=== PATIENT | male | born 1945 | race Caucasian/White ===

== ENCOUNTER 2019-05-06 17:39 | Observation (INO) | payer MEDICARE, BC ==
[2019-05-06] MEDS ORDERED: NS 0.9% 1000 ML** 1,000 ML IV ONE ×3 (17:48→19:26)
--- NOTE | 2019-05-06 17:56 | ED ---
Complex/Multi-Sys Presentation - HPI Summary HPI Summary: 74-year-old male presents with weakness today. He states he's been working outside for the past 2 days. He states that he went outside at 10:00 am. He states that he was weeding. He states he stood up and felt very dizzy. He decided to lay down. He states he tried to get up and was unable to do so. He claims now that he did not pass out. States some weakness into his arms or legs. No difficulty speech. No difficulty swallowing. No difficulties with word finding. Denies any headache. The dizziness has resolved. He states weakness is better. Just feels very thirsty. no chest pain or SOB. no abdominal pain, nausea or vomiting. no cough. no recent illness. Has a sunburn noted to his face. He has no medical conditions. - History Of Current Complaint Chief Complaint: EDExposureHeatCold Time Seen by Provider: 05/06/19 17:47 - Allergies/Home Medications Allergies/Adverse Reactions: Allergies Allergy/AdvReac Type Severity Reaction Status Date / Time No Known Allergies Allergy Verified 05/06/19 20:53 Home Medications: Home Medications Advair Diskus 100-50* 05/06/19 [History] PMH/Surg Hx/FS Hx/Imm Hx Endocrine/Hematology History: Denies: Hx Anticoagulant Therapy Cardiovascular History: Reports: Hx Hypertension Denies: Hx Myocardial Infarction Infectious Disease History: No Infectious Disease History: Denies: Traveled Outside the [place] in Last 30 Days - Family History Known Family History: Positive: Non-Contributory - Social History Substance Use Type: Reports: None Review of Systems Negative: Fever Negative: Chest Pain Negative: Shortness Of Breath Neurological: Other - dizziness resolved Positive: Weakness All Other Systems Reviewed And Are Negative: Yes Physical Exam Triage Information Reviewed: Yes Vital Signs On Initial Exam: Initial Vitals Temp Pulse Resp BP Pulse Ox 97.8 F 120 20 115/82 90 05/06/19 17:42 05/06/19 17:42 05/06/19 17:42 05/06/19 17:42 05/06/19 17:42 Vital Signs Reviewed: Yes Appearance: Positive: Well-Appearing Skin: Positive: Warm, Dry Head/Face: Positive: Normal Head/Face Inspection Eyes: Positive: Normal, EOMI, TEX, Conjunctiva Clear ENT: Positive: Normal ENT inspection, Pharynx normal, TMs normal Respiratory/Lung Sounds: Positive: Clear to Auscultation, Breath Sounds Present Cardiovascular: Positive: Normal, RRR Abdomen Description: Positive: Nontender, Soft Bowel Sounds: Positive: Present Musculoskeletal: Positive: Strength/ROM Intact - all extremities Neurological: Positive: Sensory/Motor Intact, Alert, Oriented to Person Place, Time, CN Intact II-III, Finger to Nose, Facial Symmetry, Speech Normal Psychiatric: Positive: Normal Diagnostics - Vital Signs Vital Signs Temp Pulse Resp BP Pulse Ox 05/06/19 17:42 97.8 F 120 20 115/82 90 - Laboratory Result Diagrams: 05/06/19 18:22 05/06/19 20:37 Lab Statement: Any lab studies that have been ordered have been reviewed, and results considered in the medical decision making process. - EKG No standard instances Cardiac Rate: NL EKG Rhythm: Sinus Rhythm Summary of EKG Findings: sinus rhythm Re-Evaluation - Re-Evaluation First Eval Re-Evaluation Time: 20:05 Change: Improved Comment: feeling better after fluids, tolerate oral fluids Complex Multi-Symp Course/Dx Course Of Treatment: 74-year-old male presents with weakness today. He states he's been working outside for the past 2 days. He states that he went outside at 10:00 am. He states that he was weeding. He states he stood up and felt very dizzy. He decided to lay down. He states he tried to get up and was unable to do so. States some weakness into his arms or legs. No difficulty speech. No difficulty swallowing. No difficulties with word finding. Denies any headache. The dizziness has resolved. He states weakness is better. Just feels very thirsty. no chest pain or SOB. no abdominal pain, nausea or vomiting. no cough. no recent illness. Has a sunburn noted to his face. He has no medical conditions. On exam has a sunburn noted to right side of body. mucous membranes dry. No neuro deficit noted. temp normal. was initially tachycardia. wbc 15. lactic 3.1. CK 2,300. feeling better with fluids. vitals not orthostatic. able to ambulate to bathroom. discussed with dr gonzáles said to gt repeat bmp and ck. Cr improved. CK doubled. patient complain of left shoulder pain and limited ROM. shoulder xray normal. discussed case with dr haddad. - Diagnoses Differential Diagnoses/HQI/PQRI: CVA, Metabolic Abnormality, Other - heat exhuastoin Provider Diagnoses: Rhabdomyolysis, Dizziness, Shoulder pain, left Discharge - Sign-Out/Discharge Documenting (check all that apply): Patient Departure - Discharge Plan Condition: Stable Disposition: ADMITTED TO [facility] - Billing Disposition and Condition Condition: STABLE Disposition: Admitted to [facility]
[2019-05-06 18:45] LABS: ABS Basophils 0.1 10^3/ul (0-0.2); ABS Monocytes 1.3 10^3/ul (0-0.8); Eosinophil % 0.1 %; Hematocrit 47 % (42-52); Hemoglobin 15.7 g/dL (14.0-18.0); Lymphocyte % 6.8 %; Mean Corpuscular HGB Conc 34 g/dL (31-36); Mean Corpuscular Hemoglobin 39 pg (27-31); Mean Corpuscular Volume 116 fL (80-94); Mean Platelet Volume 9.5 fL (7.4-10.4); Platelet Count 199 10^3/uL (150-450); Red Blood Count 4.04 10^6 /uL (4.18-5.48); Red Cell Distribution Width 14 % (10-15); White Blood Count 15.4 10^3/uL (3.5-10.8)
[2019-05-06 18:48] LABS: Albumin 3.5 g/dL (3.2-5.2); Albumin/Globulin Ratio 1.1 (1-3); BUN/Creatinine Ratio 7.6 (8-20); C Reactive Protein 3.38 mg/L (<8.01); Calcium 8.5 mg/dL (8.6-10.3); Globulin 3.1 g/dL (2-4); Magnesium 1.8 mg/dL (1.9-2.7); Potassium 4.1 mmol/L (3.5-5.0); Total Bilirubin 0.7 mg/dL (0.2-1.0); Total Protein 6.6 g/dL (6.4-8.9)
[2019-05-06 18:49] LABS: Troponin I 0.02 ng/mL (<0.04)
[2019-05-06 19:21] LABS: TSH (Thyroid Stimulating Horm) 2.54 mcIU/mL (0.34-5.60)
[2019-05-06 20:44] LABS: Urine Appearance Clear; Urine Bacteria Absent (Absent); Urine Bilirubin Negative (Negative); Urine Blood 3+ (Negative); Urine Color Yellow; Urine Glucose Negative (Negative); Urine Ketones Negative (Negative); Urine Nitrite Negative (Negative); Urine Protein Negative (Negative); Urine Red Blood Cell 1+(3-5/hpf) (Absent); Urine Specific Gravity 1.008 (1.010-1.030); Urine Squamous Epithelial Cell Present (Absent); Urine Urobilinogen Negative (Negative); Urine White Blood Cell Trace(0-5/hpf) (Absent)
[2019-05-06 21:02] LABS: BUN/Creatinine Ratio 8.7 (8-20); Calcium 7.8 mg/dL (8.6-10.3); EGFR African American 75.2 (>60); EGFR Non-African American 62.2 (>60); Potassium 4.1 mmol/L (3.5-5.0)
[2019-05-06 21:04] LABS: Troponin I 0.03 ng/mL (<0.04)
[2019-05-06] MEDS ORDERED: Acetaminophen TAB* 325 MG PO PRN (23:09)
[2019-05-06] MEDS ORDERED: Lactated Ringers 1000 ML Bag* 1,000 ML IV SCH (23:45)
[2019-05-06] MEDS ORDERED: LORazepam TAB(*) 1 MG PO SCH (23:45)
[2019-05-06] MEDS ORDERED: Thiamine IV* 100 MG/ML 2 ML VIAL IM ONE (23:53)
[2019-05-07] MEDS ORDERED: Nicotine* 2MG (FRUIT FLAVOR) GUM PO PRN (00:02)
--- NOTE | 2019-05-07 02:09 | HP ---
CC: Dr. Justino Nielsen HISTORY AND PHYSICAL: DATE OF ADMISSION: 05/06/19. TIME OF EVALUATION: 10:50 p.m. PRIMARY CARE PROVIDER: Dr. Justino Nielsen. CHIEF COMPLAINT: "I don't know what happened." HISTORY OF PRESENT ILLNESS: Mr. Frederick is a 74-year-old male with past medical history of hypert ension, who presented to the emergency room after having an episode of dizziness while working in his garden. The patient states that he woke up around 6 in the morning, feeling well and around 10, he went to wo rk outside. He states that he was weeding, taking care of his tomatoes, watering some plants and aft er 10 to 15 minutes, he started to feel very weak and dizzy. He felt like he was going to pass out, so he sat down and eventually lied on the ground. He states that he was trying to get up, but he cou ld not because he was feeling so weak. His found him outside and called the ambulance to bring him to the emergency room. He is not sure if he lost consciousness or not and he does not know for h ow long he was working outside. As per ED report, the patient was lying on the ground in the sun for at least an hour. He denies chest pain, palpitations, shortness of breath, nausea, vomiting, diarrhea, or urinary compl aints. At the time of my evaluation, he states that he is feeling tired but the dizziness is resolved. PAST MEDICAL HISTORY: Hypertension. The patient states that he has stopped taking his pills. He st ates that the initial one caused cough and the second one caused dizziness and so for the past month, he has not been taking any medications. FAMILY HISTORY: His father had a heart attack in his 70s and his mother had a stroke in her 70s, she is still alive at 97. SOCIAL HISTORY: The patient is a smoker, half a pack a day since he was a teenager. He also states that he drinks 3 to 4 ounces of whisky every day. Surrogate decision maker is his , Heather gruber, phone number is [phone]. REVIEW OF SYSTEMS: A 14-point review of systems was performed, and all the pertinent negatives and p ositives are as per the HPI. PHYSICAL EXAMINATION GENERAL: The patient is a pleasant elderly gentleman, lying in the ED stretcher, in no acute distres s. VITAL SIGNS: Temperature 98.0, heart rate 63, respiratory rate is 16, oxygen saturation is 95% on ro om air, blood pressure is 139/83. HEENT: Pupils are equal. Dry mucous membranes. CHEST: Breath sounds present bilaterally with no added sounds. CVS: Normal S1, S2. Regular rate and rhythm. ABDOMEN: Soft. Bowel sounds are present. EXTREMITIES: No edema. NEURO: The patient is alert and oriented x3. Able to move all 4 extremities. SKIN: The patient has sunburn on the right side of his face and right arm. LABORATORY AND IMAGING DATA: The patient had a CBC that showed a WBC of 15.4, hemoglobin of 15.7, h ematocrit of 47 with a MVC of 116, MCH of 39, platelets of 199,000 with 84% neutrophils. Chemistry s howed a sodium of 142, potassium 4.1, chloride of 110, bicarb of 22, BUN of 11, creatinine of 1.4, gl ucose of 114, lactic acid of 3.1, calcium 8.5, magnesium 1.8. LFTs showed an AST of 64. His initial CPK was 23 and a repeat one was 4100. Urinalysis showed 3+ blood, 1+ rbcs, squamous epithelial cells and hyaline casts. EKG done 05/06/19 at 6:08 p.m. shows sinus rhythm at 87 beats per minute with no acute ischemic bradshaw es. There is no prior EKG to compare. CT of the brain without contrast showed no acute intracranial abnormality and a left shoulder x-ray is not yet officially read, but it shows signs of osteoarthros is, but I do not see any gross fracture, but we will follow the official report. ASSESSMENT AND PLAN: Mr. Frederick is a 74-year-old male with a past medical history of hypertensio n, who presented to the emergency room after an episode of dizziness and possible syncopal episode. 1. Dizziness. The patient has stopped taking his antihypertensives over the past month. On arrival to the emergency room, his blood pressure was normal, although it trended up a little and now it is back to normal again. It is unclear if he had a syncopal episode or not. He states that when the di zziness started, he was able to sit down and then lie down but he does not remember the details. He will be admitted to the telemetry floor and we will watch his heart rhythm. He will also have an echocardiogram. Although he does not remember all the details, he thinks he was working 10 to 15 minutes before he s tarted to feel sick. He states that he stooped over and when he got up, he felt dizzy. It does not sound he stayed outside for unknown amount of time and he does have a sunburn, so I think his dehydra tion at this point is from being on the ground for so long in the sun, but I do not think it is the c ause of his dizziness. He will receive IV hydration and we will continue to monitor. 2. Mild CPK elevation. We will continue IV hydration and continue to monitor. 3. Hypertension. The patient does not remember the name of his medications. We are going to contin ue to monitor his blood pressure and see if resuming medications will be necessary. 4. Alcohol use. The patient will be placed on a [place] protocol. 5. Tobacco abuse. The patient was educated about the importance of quitting and he will be started on nicotine supplementation. 6. DVT prophylaxis. The patient has a score of 2 on the DVT Prophylaxis Assessment Guide and he wi ll be started on subcutaneous heparin. 7. Code status is full. TIME SPENT: Approximately 55 minutes were spent with the patient interview, medical records review, physical examination to complete this admission; more than half of this time was spent [id number] w ith the patient and coordination of care. [id number]/[facility] #: [id number]
[2019-05-07 03:50] LABS: ABS Lymphocytes 1.5 10^3/ul (1.0-4.8); ABS Monocytes 1.1 10^3/ul (0-0.8); ABS Neutrophils 6.3 10^3/ul (1.5-7.7); Eosinophil % 0.1 %; Hematocrit 41 % (42-52); Lymphocyte % 17.1 %; Mean Corpuscular HGB Conc 35 g/dL (31-36); Mean Corpuscular Hemoglobin 40 pg (27-31); Mean Corpuscular Volume 115 fL (80-94); Mean Platelet Volume 9.5 fL (7.4-10.4); Platelet Count 170 10^3/uL (150-450); Red Blood Count 3.51 10^6 /uL (4.18-5.48); Red Cell Distribution Width 14 % (10-15)
[2019-05-07 03:57] LABS: BUN/Creatinine Ratio 10.9 (8-20); EGFR African American 87.4 (>60); EGFR Non-African American 72.2 (>60)
[2019-05-07 04:13] LABS: Troponin I 0.03 ng/mL (<0.04)
[2019-05-07] MEDS: Heparin VIAL(*) 5000 UNITS/ML VIAL (FIVE THOUSAND) SUBCUT SCH ×2 (05:28→13:37)
--- NOTE | 2019-05-07 08:54 | PN ---
Hospitalist Progress Note Date of Service: 05/07/19 HD # 1 on 05/07 74 M HTN, tob use, ETOH use d/o, who presented after being found down in garden , with sunburn, presyncopal sx on history, found to have elevated MCV, rhabdomyolysis, admitted for obs for furhter workup of syncope. #Syncope: Ddx likely multifacotrial, though possibly contirbuting HTn and dehydration, heat stroke, r/o arrythmia, intracranial pat -Neg Head CT -Tele on, Echo pending, EKG on admission without malignangt rhytym, trops flat #Rhabdo: + Blood in urine c/w myoglobinuria as both hemoglobin and myoglobin can be detected on the urine dipstick as "blood"; microscopic evaluation of the urine generally shows few red blood cells (RBC) -Agreesive hydaration with LR now at 100cc/hr after 2L bolus in ED -Watch kidney fxn, otherwise asymtpmatic #ETOH use d/o: Elevtaed MCV -On WAM, thiamine folate -check B12 tsh and folate to r/o other causes of macrocytosis #HTN: Restart therapy, per pt failed malodine and lisinopril /2 ot side effects , consider ARB #DVT PPX: SQH #Code: Full #Dispo: Possible d/c if WAM neg
[2019-05-07] MEDS ORDERED: Multivitamins/Minerals TAB PO SCH (09:00)
[2019-05-07] MEDS ORDERED: Folic Acid TAB* 1 MG PO SCH (09:00)
[2019-05-07] MEDS ORDERED: Thiamine TAB* 100 MG TAB PO SCH (09:00)
[2019-05-07] MEDS ORDERED: Perflutren Lipid Microsphere* 3 ML VIAL ONE (09:06)
--- NOTE | 2019-05-07 11:09 | PN ---
Subjective Date of Service: 05/07/19 Interval History: Noticed V tach 7s this morning. Patient recalled that he had chronic dizziness which was worse when he was walking down stairs, or standing up. He denied hearing difficulty, chest pain, palpitation related to it. He contributed his dizziness to amlodipine which was started 1 year ago for hypertension thus stopped. He is currently feeling better, no more dizziness at hospital. No tremors, no confusion. Discussed with patient regarding alcohol cessation, he ceased and went to AA meeting before, and stayed sober for 6 months. He claims he wants to stop drinking, but he doesn't want to talk about further plan, and he is not willing to go rehab for further detox. Offered psychiatry consult and social services manager, he refused. He wanted to get discharged with medication today. Objective Active Medications: Acetaminophen (Tylenol Tab*) 650 mg PO Q6H PRN PRN Reason: MILD PAIN or TEMP > 100.4 Folic Acid (Folvite Tab*) 1 mg PO DAILY [facility] Last Admin: 05/07/19 08:00 Dose: 1 mg Heparin Sodium (Porcine) (Heparin Vial(*)) 5,000 units SUBCUT Q8HR [facility] Last Admin: 05/07/19 05:28 Dose: Not Given Lactated Ringer's (Lactated Ringers 1000 Ml Bag*) 1,000 mls @ 100 mls/hr IV PER RATE [facility] Last Admin: 05/07/19 00:50 Dose: 100 mls/hr Lorazepam (Ativan Tab(*)) 0 - 6 mg PO .PER [facility] PROTOCOL [facility]; Protocol Multivitamins/Minerals (Theragran/Minerals Tab*) 1 tab PO DAILY [facility] Last Admin: 05/07/19 08:00 Dose: 1 tab Nicotine Polacrilex (Nicotine Gum*) 2 mg PO Q2H PRN PRN Reason: CRAVING Thiamine HCl (Vitamin B-1 Tab*) 100 mg PO DAILY [facility] Last Admin: 05/07/19 08:00 Dose: 100 mg Vital Signs - 8 hr 05/07/19 03:15 Temperature 97.8 F Pulse Rate 55 Respiratory 16 Rate Blood Pressure 147/71 (mmHg) O2 Sat by Pulse 94 Oximetry Oxygen Devices in Use Now: None Exam: Not in distress Heart normal S1S2 Lung clear Abdomen soft non tender No tremors bruises over left hip and left lateral leg seen. Result Diagrams: 05/07/19 03:22 05/07/19 03:22 Assess/Plan/Problems-Billing Assessment: 74 y/o white male with b/g HTN, alcohol use d/o, tabacco use d/o presented with sycope episode in garden, with sunburn. Admitted for further workup o a syncope. His syncope is likely mutifactoria, possibly contributing to HTn, dehydration, heat stroke. He also had rhabdomysis with no acute kidney injury. - Patient Problems (1) Syncope Current Visit: Yes Status: Acute Code(s): R55 - SYNCOPE AND COLLAPSE SNOMED Code(s): 893889929 Comment: - ddx include cardiogenic, neurogenic, dehydration, heat stroke, vasovagal - head CT, EKG neg, trop flat (2) Alcohol use disorder Current Visit: Yes Status: Acute Code(s): YWX5397 - SNOMED Code(s): 9906205 Comment: - advised for quit, pt reused - monitor CIWA score inpatient, and put on lorazepam prn (3) Rhabdomyolysis Current Visit: Yes Status: Acute Code(s): M62.82 - RHABDOMYOLYSIS SNOMED Code(s): 339251119 Comment: elevated CK, no BRODY, no globulinuria hydrate patient (4) Hypertension Current Visit: Yes Status: Acute Code(s): I10 - ESSENTIAL (PRIMARY) HYPERTENSION SNOMED Code(s): 53363776 Comment: failed amlodipine and lisinopril change to losartan this adm (5) Macrocytosis without anemia Current Visit: Yes Status: Acute Code(s): D75.89 - OTHER SPECIFIED DISEASES OF BLOOD AND BLOOD-FORMING ORGANS SNOMED Code(s): 574050790 Comment: elevated MCV without anemia, due to Etoh use put on folate, thiamine (6) Ventricular tachycardia (paroxysmal) Current Visit: Yes Status: Acute Code(s): I47.2 - VENTRICULAR TACHYCARDIA SNOMED Code(s): 50589877 Comment: possibly due to Mg deficiency related to chronic EtOH use replace Mg (7) DVT (deep venous thrombosis) Current Visit: Yes Status: Acute Code(s): I82.409 - ACUTE EMBOLISM AND THOMBOS UNSP DEEP VN UNSP LOWER EXTREMITY SNOMED Code(s): 783971804 Comment: subcutaneous heparin (8) Full code status Current Visit: Yes Status: Acute Code(s): Z78.9 - OTHER SPECIFIED HEALTH STATUS SNOMED Code(s): 083252389 Status and Disposition: Stable to home. Attestation Documenting Resident: Lynne Salinas Supervising Physician: Andressa Tian Attestation: This service has been performed in part by a resident under the direction of a teaching physician.I, Andressa Tian, performed the service, or was physically present during the critical, or weston portions of the service, furnished by the resident. I participated in the management of the patient.
[2019-05-07] MEDS ORDERED: Magnesium Sulfate 2 GM IV* 2 GM/50 ML BAG IVPB ONE (11:39)
--- NOTE | 2019-05-07 11:41 | ECHO ---
*[facility]* [place] [address] Fax #: [phone] Transthoracic Echocardiogram Patient: Andry Frederick : 1945 Study Date: 05/07/2019 Age: 74 Gender: M HR: 62 bpm Height: 65 in /165.1 cm BSA: 1.74 m^2 Weight: 147.7 lb /67.1 kg BMI: 24.6 kg/m^2 *Basket Operator: Alysa Shepherd [facility] *Referring Physician: * Laura FigueroaReading Physician: * Angel Sutton MD Indications: Syncope. History: Risk factors: Current tobacco use. Hypertension. Conclusions Summary: - Procedure narrative: Transthoracic echocardiography was performed. Image quality was suboptimal. Intravenous Definity , 3 mlswas administered. - Left ventricle: The cavity size is normal. Wall thickness is mildly increased. Systolic function is normal. The estimated ejection fraction is 55-60%. Wall motion is normal; there are no regional wall motion abnormalities. - Right ventricle: The cavity size is normal. Systolic function is normal. - Left atrium: The atrium is normal in size. - Pulmonary arteries: Systolic pressure can not be accurately estimated. - No significant valvular abnormalities noted. Recommendations: None prior for comparison at time of interpretation Study data: Transthoracic echocardiogram. Procedure: Transthoracic echocardiography was performed. Image quality was suboptimal. Intravenous Definity , 3 mlswas administered. Image enhancement administered by Vito [email or web address] Pressley. Complete 2D, spectral Doppler, and color flow Doppler. Location: Bedside. Patient status: Inpatient. Patient room number: 441 02. Rhythm: Normal sinus rhythm. Findings Left ventricle: The cavity size is normal. Wall thickness is mildly increased. Systolic function is normal. The estimated ejection fraction is 55-60%. Wall motion is normal; there are no regional wall motion abnormalities. There is no consistent Doppler evidence of clinically significant diastolic dysfunction. Right ventricle: The cavity size is normal. Systolic function is normal. Left atrium: The atrium is normal in size. Right atrium: The atrium is normal in size. Mitral valve: The leaflets are normal thickness. There is no evidence of stenosis. There is trace regurgitation. Aortic valve: Not well visualized. There is no evidence of thickening. There is no evidence of stenosis. There is no significant regurgitation. Tricuspid valve: The leaflets are normal thickness. There is no evidence of stenosis. There is no significant regurgitation. Pulmonic valve: Not well visualized. There is no evidence of stenosis. There is no significant regurgitation. Aorta: The aortic root appears normal. The aortic arch appears normal. Pericardium: There is no significant pericardial effusion. Pulmonary arteries: Not well visualized. Systolic pressure can not be accurately estimated. Systemic veins: Inferior vena cava: The vessel is normal in size. There is (>= 50%) respiratory change in the IVC dimension. Measurements Left ventricle Value Ref Aortic valve Value Ref JOANN, LAX 4.6 cm 4.2 - 5.8 Mary Jo diam, ED 2.2 cm ---- ESD, LAX 3.1 cm 2.5 - 4.0 Peak v, S 1.4 m/sec ---- FS, LAX 33 % 25 - 43 VTI, S 25.7 cm ---- PW, ED, LAX (H) 1.1 cm 0.6 - 1.0 Mean grad, S 3.0 mm Hg ---- EF 62 % 52 - 72 Peak grad, S 8.0 mm Hg ---- E', lat mary jo, TDI (L) 6.7 cm/sec >=10.0 E/e', lat mary jo, 9 Mitral valve Value Ref TDI Peak E 0.61 m/sec ---- E', med mary jo, TDI 9.0 cm/sec >=7.0 Peak A 0.68 m/sec ---- E/e', med mary jo, 7 Decel time 243 ms ---- TDI Peak E/A ratio 0.9 ---- E', avg, TDI 7.9 cm/sec E/e', avg, TDI 8 <=14 Pulmonic valve Value Ref Peak v, S 0.81 m/sec ---- LVOT Value Ref Peak grad, S 3.0 mm Hg ---- Peak thais, S 1.07 m/sec Mean grad, S 2 mm Hg Aortic root Value Ref Root diam 3.0 cm <3.9 Ventricular septum Value Ref IVS, ED 1.0 cm 0.6 - 1.0 Ascending aorta Value Ref AAo AP diam, S 3.4 cm ---- Right ventricle Value Ref JOANN, LAX 3.2 cm Aortic arch Value Ref JOANN minor ax, 3.0 cm 1.9 - 3.5 Arch diam 2.6 cm ---- A4C mid Decending aorta Value Ref Left atrium Value Ref Eb peak thais 0.58 m/sec ---- AP dim, ES 3.50 cm 3.00 - 4.00 Inferior vena cava Value Ref ML dim, A4C 4.1 cm Diam 1.3 cm ---- SI dim, A4C 5.0 cm Vol/bsa, ES, 1-p 23 ml/m^2 12 - 37 A4C Right atrium Value Ref SI dim, ES 5.0 cm 3.4 - 5.3 ML dim, ES, A4C 4.1 cm 2.6 - 4.4 Legend: (L) and (H) britton values outside specified reference range. Prepared and electronically signed by Angel Sutton MD 05/07/2019 11:40
[2019-05-07] MEDS ORDERED: Losartan TAB* 25 MG PO SCH (12:00)
[2019-05-07] MEDS ORDERED: Naltrexone TAB* 50 MG TAB PO SCH (12:00)
[2019-05-07 15:23] LABS: Folate 2.43 ng/mL (>3.99)
--- NOTE | 2019-05-07 15:27 | DS ---
CC: Dr. Justino Nielsen DISCHARGE SUMMARY: DATE OF ADMISSION: 05/06/19 DATE OF DISCHARGE: 05/07/19 PRIMARY CARE PROVIDER: Dr. Justino Nielsen. DISPOSITION AT THE TIME OF DISCHARGE: Stable to home. PRIMARY DIAGNOSES: 1. Vasovagal syncope. 2. Alcohol use disorder. 3. Rhabdomyolysis. SECONDARY DIAGNOSES: 1. Tobacco use. 2. Hypertension. 3. Alcohol dependence, complicated by withdrawals in the past. MEDICATIONS AT THE TIME OF DISCHARGE: 1. Folic acid 1 mg p.o. daily. 2. Losartan 25 mg p.o. daily. 3. Multivitamin 1 tab p.o. daily. 4. Naltrexone 50 mg p.o. daily p.r.n. for cravings. 5. Magnesium oxide 400 mg p.o. b.i.d. Medication changes on this admission were the addition of all medications as the patient was not taki ng any medications on admission. HISTORY OF PRESENT ILLNESS AND HOSPITAL COURSE: A 74-year-old male with the above past medical histo ry who presented to the emergency room after being found down by his in the garden in the [facility] [place], unclear how long he had been there. In the emergency room, the patient's vital signs were st able, mild hypertension. His orthostatic vitals were positive and he had a notable sunburn on his fac e. The patient is a vague historian, although he does report drinking 4 whiskey drinks at 9 a.m. and then going out into the garden to do some work. He reports it was very hot, he had not been drinkin g a lot of water and he describes a clear prodromal syndrome of feeling dizzy and then deciding to li e down. He is unsure if he truly lost consciousness and he is unsure if he struck his head, although he has no head pain. In the emergency room, workup included a shoulder x-ray which showed no acute fracture, a brain CT which showed no acute intracranial pathology, and an EKG which showed normal sin us rhythm with no acute signs of ischemia. Labs were done, which show significant macrocytosis to 11 5, but otherwise unremarkable; creatinine initially elevated at 1.44 as well as a total creatine andreina se elevated at 2316, magnesium low, lactic acid mildly elevated at 3.1. Secondary to lab abnormaliti es as well as syncopal workup, the hospitalist team was asked to admit the patient on observation sta tus and hospital course by problem is as follows: 1. Syncope. Naturally differential diagnosis for syncope is cardiogenic versus neurologic. The pat ient has clear prodrome on recollection and also has predisposing risk factor of alcohol use. He was orthostatic on admission and EKG did not show recent cardiac event. Brain CT does not show any acut e intracranial pathology. Neuro exam was unremarkable. The patient was monitored on telemetry witho ut any malignant arrhythmias. He does have low magnesium and it is possible that nonsustained V-tach contributed to this, although there was no evidence of this in this hospitalization. An echocardiog minal was done, which showed no regional wall motion abnormalities nor were there any valvular patholog ies to attribute to this dizziness. It is presumed that it is secondary to the combination of possib le heat stroke as well as vasovagal syncope in the setting of daily alcohol use and poor hydration st atus. The patient was given 2 L of lactated Ringer's in the emergency room and then was placed on 10 0 cc per hour and had significant improvement in his dizziness and orthostatics that were negative pr ior to discharge. He does have mild hypertension at baseline and the patient reported he had stopped taking all of his medications. He was started on low-dose losartan as he reports he had side effect s to amlodipine and lisinopril in the past. He tolerated first dose of losartan well in the hospital and was able to be discharged on such. 2. Hypertension. See above. The patient has failed amlodipine and lisinopril according to him, and trial of losartan 25 mg was started and can be followed up on status post discharge. 3. Alcohol use disorder. The patient has had withdrawals in the past. He says last time that he ma intained sobriety was 15 years ago where he maintained sobriety for 7 months after a DUI. He express es no interest whatsoever in stopping drinking, although many harm reduction factors were offered to him including groups, rehabilitation, medications, treatment for depression, and also even offered ke eping in the hospital to help him withdraw from alcohol, which he reports usually will not start unti l hospital day 3. The patient reports that he feels content to drink and sees no reason to stop, alt roberto carlos he would be willing to try medications to help with cravings if there was, in fact, the day he wanted to stop. Again, information on alcohol use disorder and treating underlying depression was giv en, although the patient declined resources or meeting with Social Work at this time. He had no sign s or symptoms of withdrawal while in the hospital and was placed on WAM protocol, though continually scored below protocol thresholds. He was discharged to home on 05/07/19 with recommendation to retur n to the hospital if he did, in fact, start going into withdrawal. 4. Rhabdomyolysis. The patient had total creatine kinase elevated on admission with mild creatinine elevation that after fluid rehydration returned to normal. CK is still elevated, though the patient is drinking and urinating normally. He has no joint pains, able to ambulate freely. Likely, this w as secondary to trauma from being found down. 5. Macrocytosis. This was most likely secondary to ongoing alcohol use. The patient was started on folate. B12 and TSH were checked and TSH was normal. B12 is pending. 6. DVT prophylaxis: The patient was placed on subcu heparin. On the day of discharge, the patient is tolerating diet and voiding freely. Orthostatics are negative . He is eager to return to home. Again, repeated counseling on unhealthy relationship with alcohol and clear alcohol use disorder with offer to keep the patient in the hospital for detoxification as w ell as pursuing inpatient alcohol use disorder treatment was given to the patient, which he adamantly declined and has capacity to do so. PHYSICAL EXAMINATION: On the day of discharge reveals an elderly man, in no acute distress without t remors. Regular rate and rhythm with no murmurs, rubs, or gallops. Clear to auscultation of lungs b ilaterally. Belly is soft, nontender, and nondistended. He is ambulating and voiding freely and linda erating diet with no further complaints of dizziness. LABS AND STUDIES DONE DURING THIS HOSPITALIZATION: On 05/06/19, CT head showed no acute intracranial pathology. Shoulder x-ray done on 05/05/19 shows no acute fracture. EKG showed normal sinus rhythm with no acute signs of ischemia. Echocardiogram on 05/07/19 showed ejection fraction of 50% to 55% with no regional wall motion abnorm alities and no valvular pathology. CONSULTATIONS DURING THIS HOSPITALIZATION: None. ITEMS TO FOLLOW UP ON STATUS POST DISCHARGE: 1. Hypertension. The patient was started on low-dose losartan. 2. Alcohol use disorder. The patient declined any assistance in discontinuing alcohol use. He did offer to try p.r.n. naltrexone after discussion of medications was brought up, though we counseled th at the use of medication-assisted therapy in alcohol use disorder without concurrent chemical depende ncy counseling is likely less successful. Suggest counseling and follow up with primary care to the best of his ability. Trial naltrexone 50 mg p.o. daily p.r.n. for cravings that the patient is vito ble to. 3. Macrocytosis. Started on folic acid and thiamine for precautions. 4. Syncope. There was no clear structural etiology for this patient's syncope and likely is presume d to be vasovagal in the setting of heat and early in the day alcohol use. If there are further epis odes, would recommend cardiac stress test. Plan of care was reviewed with the patient and his family, who ultimately agree and are stable to be discharged to home. Counseled to return to the hospital if any new signs or symptoms of chest pain, shortness of breath, or life-threatening symptoms. Otherwise, follow up with primary care. TIME SPENT: Thirty-five minutes were spent on the planning of this discharge, with over half of that spent directly at the bedside of the patient providing direct patient care. If there are any questions about the care provided to this patient, please do not hesitate to reach o ut to the hospitalist team directly. [id number]/[facility] #: [id number]
[2019-05-07 16:28] VITALS: BP 140/63
== END 2019-05-07 16:25 | disposition home or self-care (01) ==
LOC: ED 17:39 → MEDTELE 22:50
PROVIDERS: ADMIT Internal Medicine; ATTEND Internal Medicine
DX: R55 Syncope and collapse (principal); F10.20 Alcohol dependence, uncomplicated; M62.82 Rhabdomyolysis; I10 Essential (primary) hypertension; R94.4 Abnormal results of kidney function studies; R53.1 Weakness; R42 Dizziness and giddiness; I44.4 Left anterior fascicular block; F17.210 Nicotine dependence, cigarettes, uncomplicated; Z79.899 Other long term (current) drug therapy; D75.89 Other specified diseases of blood and blood-forming organs; I47.2 Ventricular tachycardia
CPT/HCPCS: 36415; 70450; 80048; 80053; 81003; 81015; 82550; 82746; 83605; 83735; 83880; 84443; 84484; 85025; 86140; 87086; 93005; 93306; 96361; 96365; 96372; 99285; 99406; A9270-GY; C8929; G0378; J1644; J3411; J3475

== ENCOUNTER 2023-12-27 06:42 | Observation (INO) ==
[2023-12-27] MEDS ORDERED: Scopolamine 1 mg/72hr PATCH ONE (07:54)
[2023-12-27] MEDS ORDERED: Lidocaine 2% PF 5 ML VIAL ONE (08:07)
[2023-12-27] MEDS ORDERED: Propofol 10 MG/ML 20 ML BTL ONE (08:07)
[2023-12-27] MEDS ORDERED: Midazolam 2 mg/2 ml VIAL 1 mg/ml 2 ml VIAL (2 mg) ONE (08:11)
[2023-12-27] MEDS ORDERED: fentaNYL 100 mcg/2 ml 50 MCG/ML VIAL ONE ×2 (08:11→09:57)
[2023-12-27 08:27] LABS: Rapid COVID-19 Molecular Undetected (Undetected)
[2023-12-27] MEDS ORDERED: Glycopyrrolate IV 0.2 MG/ML 1 ML VIAL ONE ×2 (08:36→12:44)
[2023-12-27] MEDS: Scopolamine 1 mg/72hr PATCH TRANSDERM ONE (08:44)
[2023-12-27] MEDS ORDERED: Naloxone 0.4 mg VIAL 0.4 mg/ml 1 ml VIAL IV PRN ×2 (08:47)
[2023-12-27] MEDS ORDERED: fentaNYL 100 mcg/2 ml 50 MCG/ML VIAL IV PRN (08:47)
[2023-12-27] MEDS ORDERED: Metoclopramide 5 MG/ML VIAL (10 mg) IV PRN (08:47)
[2023-12-27] MEDS ORDERED: Ondansetron 4 mg VIAL 2 MG/ML 2 ml VIAL IV PRN ×2 (08:47→09:12)
[2023-12-27] MEDS: Buffered Lidocaine 1% SYRIN 1 ml INTRADERM ONE (09:05)
[2023-12-27] MEDS ORDERED: Mometasone/Formoter 200/5 MDI INH PRN (09:11)
[2023-12-27] MEDS ORDERED: Sterile Water for Inj 10 ML ONE (09:50)
[2023-12-27] MEDS ORDERED: Ondansetron 4 mg VIAL 2 MG/ML 2 ml VIAL ONE ×2 (09:52→13:05)
[2023-12-27] MEDS ORDERED: Dexamethasone IV 4 MG/ML VIAL 1 ml VIAL ONE ×2 (09:52→13:05)
[2023-12-27] MEDS ORDERED: KETAMINE HCL 10 MG/ML 20 ml VIAL (200 MG) ONE (12:35)
[2023-12-27] MEDS: Gentamicin ADULT 275 MG in NS 0.9% 100 ml BAG 100 ML IVPB ONE (13:18)
[2023-12-27] MEDS: Ampicillin ADVAN 2 GM in NS 0.9% 100 ML 100 ML IVPB ONE (13:18)
[2023-12-27] MEDS: NS 0.9% 1000 ml BAG 1,000 ML IV SCH (13:32)
[2023-12-27] MEDS: Neomycin/Polym/Bacit TOP OINT 15 GM TOPICAL SCH (14:18)
[2023-12-27] MEDS: Lactated Ringers 1000 ml BAG 1,000 ML IV SCH (14:18)
[2023-12-27] MEDS: Magnesium Hydroxide LIQ 30 ML UDC PO SCH (21:14)
[2023-12-28 05:25] VITALS: BP 113/56
== END 2023-12-28 10:40 | disposition home or self-care (01) ==
LOC: OR 06:42 → SSU 06:42
PROVIDERS: ADMIT Urology; ATTEND Urology

== ENCOUNTER 2024-01-20 06:51 | Observation (INO) ==
[2024-01-20] MEDS: Ondansetron 4 mg VIAL 2 MG/ML 2 ml VIAL IV ONE ×2 (09:40→14:27)
[2024-01-20] MEDS: Lactated Ringers 1000 ml BAG 1,000 ML IV ONE (09:52)
[2024-01-20 10:01] LABS: Hematocrit 45.8 % (38-53); Hemoglobin 14.9 g/dL (13.2-16.3); Mean Corpuscular Hemoglobin 29.6 pg (27-33); Mean Corpuscular Hgb Conc 32.6 g/dL (31-36); Mean Platelet Volume 10.8 fL (7.5-11.2); Platelet Count 293 10^3/uL (150-450); Red Blood Count 5.03 10^6/uL (4.06-5.63); Red Cell Distribution Width 13.7 % (12-17); White Blood Count 10.6 10^3/uL (3.6-10.2)
[2024-01-20 10:13] LABS: Urine Appearance Turbid; Urine Bacteria 1+ /HPF (Absent); Urine Bilirubin 1+ (Negative); Urine Blood Negative (Negative); Urine Color Dark-Yellow; Urine Glucose Negative (Negative); Urine Ketones 1+ (Negative); Urine Nitrite Negative (Negative); Urine Protein 1+ (>=30 mg/dL) (Negative); Urine Red Blood Cell 2+(6-10/hpf) /HPF (0-Trace); Urine Squamous Epithelial Cell Present /HPF (Absent); Urine Urobilinogen 2+ (Negative); Urine White Blood Cell 3+(>20/hpf) /HPF (0-Trace); Urine pH 5.5 (5.0-8.0)
[2024-01-20 10:18] LABS: Albumin 3.2 g/dL (3.2-5.2); Albumin/Globulin Ratio 1.1 (1-3); C Reactive Protein 96.25 mg/L (<8.01); Creatinine, Serum 1.08 mg/dL (0.67-1.17); Globulin 2.8 g/dL (2-4); Potassium 4.1 mmol/L (3.5-5.0); Total Bilirubin 0.5 mg/dL (0.2-1.0); eGFR CKD-EPI 70.2 (>60)
[2024-01-20 10:34] LABS: ABS Lymphocytes 2.7 10^3/uL (1.0-4.8); ABS Monocytes 1.8 10^3/uL (0.0-1.1); ABS Neutrophils 6.1 10^3/uL (1.5-7.6); ABS Nucleated RBC 0.01 10^3/ul; Eosinophil % 0.1 %; Lymphocyte % 25.3 %; Nucleated Red Blood Cells % 0.1 %/100WBC (0.0-0.8)
[2024-01-20] MEDS: Iohexol 300 (CONTRAST) 10 ML SDV IV ONE (11:23)
[2024-01-20 11:40] LABS: High Sensitivity Troponin 1 Hr 8 pg/mL (<20)
[2024-01-20] MEDS: Piperacillin/Tazobac 3.375 BAG 3.375 GM/100 ML BAG IV ONE (14:50)
[2024-01-20] MEDS ORDERED: Mometasone/Formoter 200/5 MDI INH PRN (16:17)
[2024-01-20] MEDS ORDERED: Zosyn per Pharmacy NOTE FOLLOW UP SCH (17:00)
[2024-01-20] MEDS ORDERED: ZOSYN 3.375 GM Q8H per EXTENDED INFUSION IV SCH (18:30)
[2024-01-20] MEDS: ZOSYN 3.375 GM Q8H per EXTENDED INFUSION IV SCH (18:56)
[2024-01-20] MEDS: Enoxaparin 40 MG/0.4 ML SYR SUBCUT SCH (20:42)
[2024-01-21 06:14] LABS: Hemoglobin 13.2 g/dL (13.2-16.3); Mean Corpuscular Volume 91.1 fL (80-97); Mean Platelet Volume 10.7 fL (7.5-11.2); Platelet Count 243 10^3/uL (150-450); Red Cell Distribution Width 13.3 % (12-17)
[2024-01-21 06:21] LABS: ABS Eosinophils 0.1 10^3/uL (0.0-0.5); ABS Lymphocytes 2.5 10^3/uL (1.0-4.8); ABS Monocytes 1.6 10^3/uL (0.0-1.1); ABS Neutrophils 4.8 10^3/uL (1.5-7.6); ABS Nucleated RBC 0.01 10^3/ul; Eosinophil % 0.7 %; Lymphocyte % 27.8 %; Nucleated Red Blood Cells % 0.1 %/100WBC (0.0-0.8)
[2024-01-21 06:25] LABS: Calcium 7.7 mg/dL (8.6-10.3); Creatinine, Serum 1.02 mg/dL (0.67-1.17); Magnesium 1.9 mg/dL (1.9-2.7); Potassium 3.7 mmol/L (3.5-5.0); eGFR CKD-EPI 75.2 (>60)
[2024-01-21] MEDS: Pantoprazole VIAL 40 MG VIAL IV SCH (09:25)
[2024-01-21] MEDS ORDERED: Midazolam 10 mg/10 ml VIAL 1 mg/ml 10 ml VIAL (10 mg) ONE (11:39)
[2024-01-21] MEDS ORDERED: fentaNYL 100 mcg/2 ml 50 MCG/ML VIAL ONE (11:39)
[2024-01-21] MEDS: Ondansetron 4 mg VIAL 2 MG/ML 2 ml VIAL IV PRN (12:35)
[2024-01-21] MEDS ORDERED: Ondansetron 4 mg VIAL 2 MG/ML 2 ml VIAL ONE (12:36)
[2024-01-21] MEDS: ZOSYN 3.375 GM Q8H per EXTENDED INFUSION IV SCH (16:39)
[2024-01-22 10:16] VITALS: BP 117/70
== END 2024-01-22 13:55 | disposition home or self-care (01) ==
LOC: ED 06:51 → EDHOLD 06:51 → SUATTDRO 16:01 → SSU 17:35
PROVIDERS: ADMIT Internal Medicine; ATTEND Family Medicine

== ENCOUNTER 2024-02-14 09:42 | Inpatient (IN) ==
[2024-02-14] MEDS ORDERED: Senna TAB 8.6 mg TAB PO PRN (12:30)
[2024-02-14] MEDS: Enoxaparin 40 MG/0.4 ML SYR SUBCUT SCH (15:31)
[2024-02-14] MEDS: Fluticasone-Salmeterol 250-50 DISKUS NF INH SCH (18:42)
[2024-02-15 05:59] LABS: ABS Eosinophils 0.2 10^3/uL (0.0-0.5); ABS Lymphocytes 2.1 10^3/uL (1.0-4.8); ABS Monocytes 0.9 10^3/uL (0.0-1.1); ABS Nucleated RBC 0.01 10^3/ul; Eosinophil % 1.2 %; Hematocrit 28.2 % (38-53); Hemoglobin 9.1 g/dL (13.2-16.3); Lymphocyte % 17.2 %; Mean Corpuscular Hemoglobin 28.9 pg (27-33); Mean Corpuscular Hgb Conc 32.5 g/dL (31-36); Mean Platelet Volume 9.5 fL (7.5-11.2); Platelet Count 378 10^3/uL (150-450); Red Blood Count 3.17 10^6/uL (4.06-5.63); Red Cell Distribution Width 14.2 % (12-17); White Blood Count 12.3 10^3/uL (3.6-10.2)
[2024-02-16 04:58] LABS: ABS Basophils 0.1 10^3/uL (0.0-0.1); ABS Eosinophils 0.1 10^3/uL (0.0-0.5); ABS Lymphocytes 1.9 10^3/uL (1.0-4.8); ABS Neutrophils 9.7 10^3/uL (1.5-7.6); ABS Nucleated RBC 0.01 10^3/ul; Eosinophil % 0.7 %; Hematocrit 27.1 % (38-53); Hemoglobin 8.7 g/dL (13.2-16.3); Lymphocyte % 15.2 %; Mean Corpuscular Hemoglobin 28.8 pg (27-33); Mean Corpuscular Hgb Conc 32.2 g/dL (31-36); Mean Corpuscular Volume 89.3 fL (80-97); Mean Platelet Volume 9.4 fL (7.5-11.2); Platelet Count 390 10^3/uL (150-450); Red Blood Count 3.04 10^6/uL (4.06-5.63); Red Cell Distribution Width 14.3 % (12-17); White Blood Count 12.8 10^3/uL (3.6-10.2)
[2024-02-16 05:38] LABS: Albumin 1.9 g/dL (3.2-5.2); Albumin/Globulin Ratio 0.7 (1-3); Calcium 7.2 mg/dL (8.6-10.3); Creatinine, Serum 0.72 mg/dL (0.67-1.17); Globulin 2.9 g/dL (2-4); Potassium 3.9 mmol/L (3.5-5.0); Total Bilirubin 0.3 mg/dL (0.2-1.0); Total Protein 4.8 g/dL (6.4-8.9); eGFR CKD-EPI 93.5 (>60)
[2024-02-16] MEDS: D5NS 0.9% 1000 ml BAG 1,000 ML IV SCH (20:47)
[2024-02-17] MEDS: Ondansetron 4 mg VIAL 2 MG/ML 2 ml VIAL IV PRN (09:36)
[2024-02-17] MEDS: HYDROmorphone 0.5 MG/0.5 ML SYRINGE IV SLOW PU PRN (10:30)
[2024-02-17] MEDS: Iohexol 300 (CONTRAST) 10 ML SDV IV ONE (11:15)
[2024-02-17] MEDS: guaiFENesin 100 mg/5 ml LIQ unit dose cup PO PRN (14:39)
[2024-02-17 15:18] LABS: C Reactive Protein 132.04 mg/L (<8.01)
[2024-02-17] MEDS: Piperacillin/Tazobac 3.375 BAG 3.375 GM/100 ML BAG IV SCH (23:35)
[2024-02-18 06:41] LABS: ABS Eosinophils 0.1 10^3/uL (0.0-0.5); ABS Lymphocytes 1.6 10^3/uL (1.0-4.8); ABS Monocytes 1.3 10^3/uL (0.0-1.1); ABS Neutrophils 9.8 10^3/uL (1.5-7.6); ABS Nucleated RBC 0.01 10^3/ul; Eosinophil % 0.8 %; Hematocrit 24.2 % (38-53); Hemoglobin 7.9 g/dL (13.2-16.3); Lymphocyte % 12.6 %; Mean Corpuscular Hemoglobin 29.2 pg (27-33); Mean Corpuscular Hgb Conc 32.7 g/dL (31-36); Mean Corpuscular Volume 89.2 fL (80-97); Mean Platelet Volume 9.1 fL (7.5-11.2); Nucleated Red Blood Cells % 0.1 %/100WBC (0.0-0.8); Platelet Count 358 10^3/uL (150-450); Red Blood Count 2.71 10^6/uL (4.06-5.63); Red Cell Distribution Width 14.3 % (12-17); White Blood Count 12.9 10^3/uL (3.6-10.2)
[2024-02-18 07:27] LABS: Albumin 1.7 g/dL (3.2-5.2); Albumin/Globulin Ratio 0.6 (1-3); Creatinine, Serum 0.71 mg/dL (0.67-1.17); Magnesium 1.2 mg/dL (1.9-2.7); Potassium 3.5 mmol/L (3.5-5.0); Total Bilirubin 0.3 mg/dL (0.2-1.0); Total Protein 4.7 g/dL (6.4-8.9); eGFR CKD-EPI 93.9 (>60)
[2024-02-18] MEDS: Magnesium Sulfate 2 gm BAG 2 GM/50 ML BAG IVPB ONE (10:16)
[2024-02-18] MEDS: Magnesium Sulfate IV 1GM/100ML 1 GM/100 ML BAG IV ONE (11:45)
[2024-02-18 14:34] LABS: Urine Appearance Turbid; Urine Bilirubin Negative (Negative); Urine Blood 1+ (Negative); Urine Color Yellow; Urine Glucose Negative (Negative); Urine Ketones Trace (Negative); Urine Nitrite Negative (Negative); Urine Protein Trace (Negative); Urine Specific Gravity 1.036 (1.002-1.030); Urine Urobilinogen Negative (Negative); Urine pH 5.5 (5.0-8.0)
[2024-02-18 14:36] LABS: Urine Bacteria 1+ /HPF (Absent); Urine Red Blood Cell 3+(>10/hpf) /HPF (0-Trace); Urine Squamous Epithelial Cell Present /HPF (Absent); Urine White Blood Cell 3+(>20/hpf) /HPF (0-Trace)
[2024-02-19 07:33] LABS: ABS Eosinophils 0.1 10^3/uL (0.0-0.5); ABS Lymphocytes 1.5 10^3/uL (1.0-4.8); ABS Monocytes 1.2 10^3/uL (0.0-1.1); ABS Neutrophils 7.3 10^3/uL (1.5-7.6); ABS Nucleated RBC 0.01 10^3/ul; Eosinophil % 1.4 %; Hematocrit 24.6 % (38-53); Hemoglobin 7.9 g/dL (13.2-16.3); Lymphocyte % 14.9 %; Mean Corpuscular Hgb Conc 32.1 g/dL (31-36); Mean Corpuscular Volume 90.2 fL (80-97); Mean Platelet Volume 9.4 fL (7.5-11.2); Nucleated Red Blood Cells % 0.1 %/100WBC (0.0-0.8); Platelet Count 378 10^3/uL (150-450); Red Blood Count 2.72 10^6/uL (4.06-5.63); Red Cell Distribution Width 14.6 % (12-17); White Blood Count 10.3 10^3/uL (3.6-10.2)
[2024-02-19] MEDS: Magnesium Sulfate IV 1GM/100ML 1 GM/100 ML BAG IV ONE (09:44)
[2024-02-19] MEDS: Bacitracin OINTMENT TUBE TOPICAL SCH (10:15)
[2024-02-21 06:30] LABS: C Reactive Protein 117.29 mg/L (<8.01); Calcium 7.1 mg/dL (8.6-10.3); Creatinine, Serum 0.7 mg/dL (0.67-1.17); Magnesium 1.5 mg/dL (1.9-2.7); Potassium 3.7 mmol/L (3.5-5.0); eGFR CKD-EPI 94.3 (>60)
[2024-02-21 07:06] LABS: ABS Eosinophils 0.1 10^3/uL (0.0-0.5); ABS Lymphocytes 1.8 10^3/uL (1.0-4.8); ABS Monocytes 1.1 10^3/uL (0.0-1.1); ABS Neutrophils 5.5 10^3/uL (1.5-7.6); ABS Nucleated RBC 0.01 10^3/ul; Eosinophil % 0.8 %; Hematocrit 20.5 % (38-53); Hemoglobin 6.7 g/dL (13.2-16.3); Lymphocyte % 21.3 %; Mean Corpuscular Hemoglobin 29.4 pg (27-33); Mean Corpuscular Hgb Conc 32.6 g/dL (31-36); Mean Corpuscular Volume 90.3 fL (80-97); Mean Platelet Volume 9.2 fL (7.5-11.2); Nucleated Red Blood Cells % 0.1 %/100WBC (0.0-0.8); Platelet Count 358 10^3/uL (150-450); Red Blood Count 2.27 10^6/uL (4.06-5.63); Red Cell Distribution Width 14.2 % (12-17); White Blood Count 8.5 10^3/uL (3.6-10.2)
[2024-02-21 14:40] LABS: INR 1.26 (0.83-1.13)
[2024-02-21] MEDS: fentaNYL 100 mcg/2 ml 50 MCG/ML VIAL ONE (19:40)
[2024-02-21] MEDS: Magnesium Sulfate 2 gm BAG 2 GM/50 ML BAG IVPB ONE (21:03)
[2024-02-21 22:49] LABS: ABS Basophils 0.2 10^3/uL (0.0-0.1); ABS Lymphocytes 2.1 10^3/uL (1.0-4.8); ABS Monocytes 1.5 10^3/uL (0.0-1.1); ABS Neutrophils 9.3 10^3/uL (1.5-7.6); ABS Nucleated RBC 0.01 10^3/ul; Eosinophil % 0.3 %; Hematocrit 30.5 % (38-53); Lymphocyte % 16.2 %; Mean Corpuscular Hemoglobin 28.7 pg (27-33); Mean Corpuscular Hgb Conc 32.7 g/dL (31-36); Mean Corpuscular Volume 87.8 fL (80-97); Mean Platelet Volume 8.9 fL (7.5-11.2); Nucleated Red Blood Cells % 0.1 %/100WBC (0.0-0.8); Platelet Count 476 10^3/uL (150-450); Red Blood Count 3.48 10^6/uL (4.06-5.63); Red Cell Distribution Width 14.6 % (12-17); White Blood Count 13.1 10^3/uL (3.6-10.2)
[2024-02-21 23:32] LABS: Urine Appearance Clear; Urine Bilirubin Negative (Negative); Urine Blood 1+ (Negative); Urine Color Yellow; Urine Glucose Negative (Negative); Urine Ketones Negative (Negative); Urine Nitrite Negative (Negative); Urine Protein 1+ (>=30 mg/dL) (Negative); Urine Specific Gravity 1.025 (1.002-1.030); Urine Urobilinogen Negative (Negative); Urine pH 5.5 (5.0-8.0)
[2024-02-22 00:06] LABS: Urine Bacteria Absent /HPF (Absent); Urine Red Blood Cell 1+(3-5/hpf) /HPF (0-Trace); Urine Squamous Epithelial Cell Present /HPF (Absent); Urine White Blood Cell 2+(11-20/hpf) /HPF (0-Trace)
[2024-02-22] MEDS: cefTRIAXone 2 gm/50 mL D5W 2 GM/50 ML BAG IV SCH (23:23)
[2024-02-23 06:42] LABS: ABS Eosinophils 0.1 10^3/uL (0.0-0.5); ABS Lymphocytes 2.3 10^3/uL (1.0-4.8); ABS Monocytes 1.3 10^3/uL (0.0-1.1); ABS Neutrophils 6.1 10^3/uL (1.5-7.6); ABS Nucleated RBC 0.01 10^3/ul; Eosinophil % 0.7 %; Hematocrit 27.4 % (38-53); Lymphocyte % 23.5 %; Mean Corpuscular Hemoglobin 28.9 pg (27-33); Mean Corpuscular Hgb Conc 32.9 g/dL (31-36); Mean Platelet Volume 8.9 fL (7.5-11.2); Nucleated Red Blood Cells % 0.1 %/100WBC (0.0-0.8); Platelet Count 448 10^3/uL (150-450); Red Blood Count 3.11 10^6/uL (4.06-5.63); Red Cell Distribution Width 15.1 % (12-17); White Blood Count 9.7 10^3/uL (3.6-10.2)
[2024-02-23 07:09] LABS: Albumin 1.7 g/dL (3.2-5.2); Albumin/Globulin Ratio 0.5 (1-3); Creatinine, Serum 0.65 mg/dL (0.67-1.17); Globulin 3.4 g/dL (2-4); Potassium 3.7 mmol/L (3.5-5.0); Total Bilirubin 0.3 mg/dL (0.2-1.0); Total Protein 5.1 g/dL (6.4-8.9); eGFR CKD-EPI 96.4 (>60)
[2024-02-23] MEDS: Multivitamins/Minerals TAB PO SCH (15:20)
[2024-02-23 22:14] LABS: Magnesium 1.6 mg/dL (1.9-2.7)
[2024-02-25] MEDS: Magnesium Sulfate 2 gm BAG 2 GM/50 ML BAG IVPB ONE (00:23)
[2024-02-25 04:55] VITALS: BP 131/80
[2024-02-25 06:07] LABS: Calcium 7.2 mg/dL (8.6-10.3); Creatinine, Serum 0.71 mg/dL (0.67-1.17); Magnesium 1.8 mg/dL (1.9-2.7); Potassium 3.7 mmol/L (3.5-5.0); eGFR CKD-EPI 93.9 (>60)
[2024-02-25] MEDS: Enoxaparin 30 MG/0.3 ML SYR SUBCUT SCH (08:56)
== END 2024-02-25 13:00 | DRG 945 ==
LOC: AA 12:06
PROVIDERS: ADMIT Physical Medicine & Rehabilitation; ATTEND Physical Medicine & Rehabilitation

== ENCOUNTER 2024-05-31 07:49 | Inpatient (IN) ==
[~2024-05-31 07:49] MED LIST: Naloxone 0.4 mg VIAL 0.4 mg/ml 1 ml VIAL IV PRN; Ondansetron 4 mg VIAL 2 MG/ML 2 ml VIAL IV PRN; fentaNYL 100 mcg/2 ml 50 MCG/ML VIAL IV PRN
[2024-05-31] MEDS: Buffered Lidocaine 1% SYRIN 1 ml INTRADERM ONE (07:57)
[2024-05-31] MEDS ORDERED: Scopolamine 1 mg/72hr PATCH ONE (08:05)
[2024-05-31] MEDS ORDERED: ceFAZolin 2 GM PREMIX 2 GM/50 ML BAG ONE (08:06)
[2024-05-31] MEDS ORDERED: Lidocaine 2% PF 5 ML VIAL ONE (08:15)
[2024-05-31] MEDS ORDERED: Dexamethasone IV 4 MG/ML VIAL 1 ml VIAL ONE (08:15)
[2024-05-31] MEDS ORDERED: Ondansetron 4 mg VIAL 2 MG/ML 2 ml VIAL ONE (08:15)
[2024-05-31] MEDS ORDERED: Rocuronium 50 mg VIAL 10 mg/ml 5 ml VIAL (50 mg) ONE ×2 (08:15→11:06)
[2024-05-31] MEDS ORDERED: Propofol 10 MG/ML 20 ML BTL ONE (08:15)
[2024-05-31] MEDS ORDERED: fentaNYL 250 mcg/5 ml 50 MCG/ML 5 ml VIAL (250 MCG) ONE (08:16)
[2024-05-31] MEDS ORDERED: Midazolam 2 mg/2 ml VIAL 1 mg/ml 2 ml VIAL (2 mg) ONE (08:16)
[2024-05-31] MEDS: Scopolamine 1 mg/72hr PATCH TRANSDERM ONE (08:23)
[2024-05-31] MEDS: Lactated Ringers 1000 ml BAG 1,000 ML IV SCH ×2 (08:24→13:00)
[2024-05-31 08:27] LABS: Rapid COVID-19 Molecular Undetected (Undetected)
[2024-05-31] MEDS ORDERED: fentaNYL 100 mcg/2 ml 50 MCG/ML VIAL ONE ×2 (08:31→10:39)
[2024-05-31] MEDS ORDERED: Bupivacaine 0.25% w/EPI 10 ML SDV ONE (09:06)
[2024-05-31] MEDS ORDERED: Phenylephrine 40 mcg/mL 10mL (400mcg) SYRINGE ONE (09:56)
[2024-05-31] MEDS ORDERED: HYDROmorphone 0.5 MG/0.5 ML SYRINGE ONE (10:40)
[2024-05-31] MEDS ORDERED: Saline NASAL SPRAY 0.65% BTL BOTH NARES PRN (12:04)
[2024-05-31] MEDS ORDERED: Ondansetron 4 mg VIAL 2 MG/ML 2 ml VIAL IV PRN (12:06)
[2024-05-31] MEDS ORDERED: guaiFENesin 100 mg/5 ml LIQ unit dose cup PO PRN (14:00)
[2024-05-31] MEDS: oxyCODONE/Acetamin 5/325 mg TAB PO PRN (14:09)
[2024-05-31] MEDS: Mometasone/Formoter 200/5 MDI INH SCH (19:44)
[2024-06-01] MEDS: HYDROmorphone 0.5 MG/0.5 ML SYRINGE IV SLOW PU PRN (04:15)
[2024-06-01] MEDS: Heparin 5000 UNITS/ML 1 mL VIAL SUBCUT SCH (06:10)
[2024-06-01] MEDS ORDERED: HYDROmorphone 0.5 MG/0.5 ML SYRINGE IV SLOW PU PRN (09:04)
[2024-06-01] MEDS: HYDROcodone/ACET. 7.5/325 LIQ 15 ML UDC PO PRN (09:26)
[2024-06-02 10:01] VITALS: BP 127/58
== END 2024-06-02 11:45 | disposition home or self-care (01) | DRG 331 ==
LOC: SSU 07:49 → OR 07:49 → OBSVTOIN 12:44
PROVIDERS: ADMIT Surgery; ATTEND Surgery

== ENCOUNTER 2024-09-13 07:00 | Inpatient (IN) ==
[~2024-09-13 07:00] MED LIST changes: +Metoclopramide 5 MG/ML VIAL (10 mg) IV PRN; +NS 0.45% 1000 ml BAG 1,000 ML IV SCH; -fentaNYL 100 mcg/2 ml 50 MCG/ML VIAL IV PRN
[2024-09-13] MEDS ORDERED: Phenylephrine 40 mcg/mL 10mL (400mcg) SYRINGE ONE ×2 (07:12→14:45)
[2024-09-13 07:39] LABS: Rapid COVID-19 Molecular Undetected (Undetected)
[2024-09-13] MEDS ORDERED: Heparin 5000 UNITS/ML 1 mL VIAL ONE (07:50)
[2024-09-13] MEDS ORDERED: Ondansetron 4 mg VIAL 2 MG/ML 2 ml VIAL ONE (08:08)
[2024-09-13] MEDS ORDERED: Dexamethasone IV 4 MG/ML VIAL 1 ml VIAL ONE (08:08)
[2024-09-13] MEDS ORDERED: Propofol 10 MG/ML 20 ML BTL ONE (08:08)
[2024-09-13] MEDS: Scopolamine 1 mg/72hr PATCH TRANSDERM ONE (08:14)
[2024-09-13] MEDS: Lactated Ringers 1000 ml BAG 1,000 ML IV SCH ×2 (08:14→18:30)
[2024-09-13] MEDS ORDERED: Rocuronium 50 mg VIAL 10 mg/ml 5 ml VIAL (50 mg) ONE ×4 (08:14→14:59)
[2024-09-13] MEDS ORDERED: fentaNYL 100 mcg/2 ml 50 MCG/ML VIAL ONE ×3 (08:14→16:23)
[2024-09-13] MEDS ORDERED: HYDROmorphone 0.5 MG/0.5 ML SYRINGE ONE ×2 (10:00→12:39)
[2024-09-13] MEDS ORDERED: Dexmedetomidine 200 mcg/2 ml 2 ml VIAL (200 mcg) ONE (10:53)
[2024-09-13] MEDS ORDERED: Bacitracin OINTMENT TUBE ONE (15:25)
[2024-09-13] MEDS ORDERED: Naloxone 0.4 mg VIAL 0.4 mg/ml 1 ml VIAL IV PUSH PRN (16:03)
[2024-09-13] MEDS: fentaNYL 100 mcg/2 ml 50 MCG/ML VIAL IV PRN (16:24)
[2024-09-13] MEDS: HYDROmorphone PCA 20 MG/20 ML PCA.SYRING PCA SCH (17:36)
[2024-09-13] MEDS: Albuterol/Ipratropium NEB.SOL (2.5/0.5 MG) 3 ML NEB.SOLN INH ONE (18:34)
[2024-09-13] MEDS: Acetaminophen IV 1 GM/100ML 1,000 MG/100 ML BAG IV ONE (18:57)
[2024-09-13] MEDS: Buffered Lidocaine 1% SYRIN 1 ml INTRADERM ONE (18:58)
[2024-09-13] MEDS: ceFAZolin 2 GM PREMIX 2 GM/50 ML BAG IV SCH (18:59)
[2024-09-13] MEDS: Ertapenem 1 GM in NS 0.9% 50 ML IVPB ONE (19:23)
[2024-09-13] MEDS: Acetaminophen IV 1 GM/100ML 1,000 MG/100 ML BAG IV SCH (19:43)
[2024-09-13] MEDS: Piperacillin/Tazobac 3.375 BAG 3.375 GM/100 ML BAG IV SCH (20:19)
[2024-09-13] MEDS: Mometasone/Formoter 200/5 MDI INH SCH (20:24)
[2024-09-13] MEDS: Heparin 5000 UNITS/ML 1 mL VIAL SUBCUT SCH (23:50)
[2024-09-14] MEDS: Ondansetron 4 mg VIAL 2 MG/ML 2 ml VIAL IV PRN (04:00)
[2024-09-14 07:00] LABS: ABS Lymphocytes 2.2 10^3/uL (1.0-4.8); ABS Monocytes 1.4 10^3/uL (0.0-1.1); ABS Neutrophils 12.4 10^3/uL (1.5-7.6); ABS Nucleated RBC 0.01 10^3/ul; Eosinophil % 0.1 %; Hematocrit 45.5 % (38-53); Hemoglobin 14.7 g/dL (13.2-16.3); Lymphocyte % 13.6 %; Mean Corpuscular Hemoglobin 33.6 pg (27-33); Mean Corpuscular Hgb Conc 32.3 g/dL (31-36); Mean Corpuscular Volume 103.9 fL (80-97); Nucleated Red Blood Cells % 0.1 %/100WBC (0.0-0.8); Platelet Count 137 10^3/uL (150-450); Red Blood Count 4.38 10^6/uL (4.06-5.63); Red Cell Distribution Width 18.1 % (12-17); White Blood Count 16.1 10^3/uL (3.6-10.2)
[2024-09-14 07:04] LABS: Anion Gap 9 mmol/L (2-16); Blood Urea Nitrogen 19 mg/dL (6-24); CO2 Carbon Dioxide 23 mmol/L (22-32); Calcium 7.7 mg/dL (8.6-10.3); Chloride 103 mmol/L (101-111); Creatinine, Serum 1.06 mg/dL (0.67-1.17); Glucose 126 mg/dL (70-100); Sodium 135 mmol/L (135-145); eGFR CKD-EPI 71.4 (>60)
[2024-09-14 08:21] LABS: Magnesium 1.4 mg/dL (1.9-2.7); Phosphorus 3.3 mg/dL (2.5-5.0); Potassium Redraw 4.4 mmol/L (3.5-5.0)
[2024-09-14] MEDS ORDERED: Ondansetron 4 mg VIAL 2 MG/ML 2 ml VIAL IV PRN (09:33)
[2024-09-14] MEDS: Pantoprazole VIAL 40 MG VIAL IV SCH (10:29)
[2024-09-14] MEDS: Magnesium Sulf 4 GM/100 ML IV 4,000 MG/100 ML BAG IVPB ONE (10:31)
[2024-09-14] MEDS: Metoclopramide 5 MG/ML VIAL (10 mg) IV SLOW PU PRN (12:29)
[2024-09-15 05:43] LABS: ABS Lymphocytes 2.7 10^3/uL (1.0-4.8); ABS Monocytes 0.9 10^3/uL (0.0-1.1); ABS Neutrophils 6.5 10^3/uL (1.5-7.6); ABS Nucleated RBC 0.02 10^3/ul; Eosinophil % 0.2 %; Hematocrit 38.1 % (38-53); Hemoglobin 12.4 g/dL (13.2-16.3); Lymphocyte % 27.1 %; Mean Corpuscular Hemoglobin 33.7 pg (27-33); Mean Corpuscular Hgb Conc 32.5 g/dL (31-36); Mean Corpuscular Volume 103.9 fL (80-97); Nucleated Red Blood Cells % 0.2 %/100WBC (0.0-0.8); Platelet Count 121 10^3/uL (150-450); Red Blood Count 3.67 10^6/uL (4.06-5.63); Red Cell Distribution Width 17.6 % (12-17); White Blood Count 10.1 10^3/uL (3.6-10.2)
[2024-09-15 06:21] LABS: Calcium 7.4 mg/dL (8.6-10.3); Creatinine, Serum 0.86 mg/dL (0.67-1.17); Magnesium 1.8 mg/dL (1.9-2.7); Potassium 4.3 mmol/L (3.5-5.0); eGFR CKD-EPI 88.1 (>60)
[2024-09-15] MEDS: Magnesium Sulf 4 GM/100 ML IV 4,000 MG/100 ML BAG IVPB ONE (11:58)
[2024-09-16] MEDS: Influenza Vaccine *TRI* 2024-25* 0.5 ML SYRINGE IM ONE (09:08)
[2024-09-16] MEDS: COVID VAC 24-25 (12+) (Moderna) Syringe 0.5 mL IM ONE (09:09)
[2024-09-16] MEDS: HYDROmorphone 0.5 MG/0.5 ML SYRINGE IV SLOW PU PRN (17:17)
[2024-09-17 05:30] LABS: ABS Eosinophils 0.2 10^3/uL (0.0-0.5); ABS Lymphocytes 1.6 10^3/uL (1.0-4.8); ABS Monocytes 0.8 10^3/uL (0.0-1.1); ABS Neutrophils 5.4 10^3/uL (1.5-7.6); ABS Nucleated RBC 0.01 10^3/ul; Eosinophil % 2.2 %; Hematocrit 30.7 % (38-53); Hemoglobin 10.5 g/dL (13.2-16.3); Lymphocyte % 20.3 %; Mean Corpuscular Hemoglobin 34.7 pg (27-33); Mean Corpuscular Hgb Conc 34.3 g/dL (31-36); Mean Corpuscular Volume 101.2 fL (80-97); Mean Platelet Volume 8.6 fL (7.5-11.2); Nucleated Red Blood Cells % 0.1 %/100WBC (0.0-0.8); Platelet Count 125 10^3/uL (150-450); Red Blood Count 3.04 10^6/uL (4.06-5.63); Red Cell Distribution Width 16.5 % (12-17); White Blood Count 7.9 10^3/uL (3.6-10.2)
[2024-09-17 06:01] LABS: Calcium 7.2 mg/dL (8.6-10.3); Creatinine, Serum 0.6 mg/dL (0.67-1.17); Magnesium 1.3 mg/dL (1.9-2.7); Potassium 3.8 mmol/L (3.5-5.0); eGFR CKD-EPI 98.2 (>60)
[2024-09-17] MEDS: CMCS: Solifenacin 5 mg TAB (NF) PO SCH (09:10)
[2024-09-18 05:27] LABS: ABS Eosinophils 0.3 10^3/uL (0.0-0.5); ABS Lymphocytes 1.4 10^3/uL (1.0-4.8); ABS Monocytes 0.7 10^3/uL (0.0-1.1); ABS Neutrophils 3.8 10^3/uL (1.5-7.6); Eosinophil % 4.4 %; Hematocrit 31.2 % (38-53); Hemoglobin 10.4 g/dL (13.2-16.3); Lymphocyte % 22.1 %; Mean Corpuscular Hemoglobin 33.3 pg (27-33); Mean Corpuscular Hgb Conc 33.3 g/dL (31-36); Mean Corpuscular Volume 100.2 fL (80-97); Mean Platelet Volume 8.7 fL (7.5-11.2); Platelet Count 150 10^3/uL (150-450); Red Blood Count 3.11 10^6/uL (4.06-5.63); Red Cell Distribution Width 16.2 % (12-17); White Blood Count 6.3 10^3/uL (3.6-10.2)
[2024-09-18] MEDS: Magnesium Sulf 4 GM/100 ML IV 4,000 MG/100 ML BAG IVPB ONE (07:43)
[2024-09-18 14:12] VITALS: BP 114/79
[2024-09-18] MEDS: Heparin 5000 UNITS/ML 1 mL VIAL SUBCUT SCH (14:59)
== END 2024-09-18 15:15 | disposition home or self-care (01) | DRG 331 ==
LOC: OR 07:00 → SSU 15:49
PROVIDERS: ADMIT Nurse Practitioner; ATTEND Surgery